=== PATIENT | male | born 2000 ===

== ENCOUNTER 2018-12-09 22:34 | Emergency (ER) | payer MEDICAID ==
[2018-12-10] MEDS ORDERED: Sodium Chloride 0.9% 1,000 ML IV STA ×3 (02:26→03:56)
--- NOTE | 2018-12-10 02:28 | ED PDOC ---
HPI: Abdomen Time Seen by Provider: 12/10/18 01:44 Chief Complaint (Nursing): Abdominal Pain Chief Complaint (Provider): abdominal pain History Per: Patient History/Exam Limitations: no limitations Onset/Duration Of Symptoms: Days (1) Current Symptoms Are (Timing): Still Present Location Of Pain/Discomfort: Diffuse Quality Of Discomfort: Cramping Associated Symptoms: Nausea, Vomiting, Diarrhea Additional Complaint(s): 18 y/o male presents for evaluation of intermittent crampy abdominal pain x 1 day. Associated multiple episodes of watery diarrhea and one episode of vomiting. Denies fever, cough, congestion, chest pain, shortness of breath, palpitations, urinary symptoms, recent travel, sick contacts. Past Medical History Reviewed: Historical Data, Nursing Documentation, Vital Signs Vital Signs: Last Vital Signs Temp 99.8 F H 12/09/18 22:58 Pulse 139 H 12/09/18 22:58 Resp 18 12/09/18 22:58 BP 158/92 H 12/09/18 22:58 Pulse Ox 97 12/09/18 22:58 - Medical History PMH: No Chronic Diseases - Surgical History Surgical History: Appendectomy - Family History Family History: States: No Known Family Hx - Living Arrangements Living Arrangements: With Family - Home Medications Home Medications: Ambulatory Orders Medication Instructions Recorded Dicyclomine [Bentyl] 20 mg PO TID PRN #15 tab 12/10/18 Famotidine [Pepcid] 20 mg PO BID #20 tab 12/10/18 Ondansetron ODT [Zofran ODT] 4 mg PO Q8 PRN #10 odt 12/10/18 - Allergies Allergies/Adverse Reactions: Allergies Allergy/AdvReac Type Severity Reaction Status Date / Time No Known Allergies Allergy Verified 12/09/18 22:58 Review of Systems ROS Statement: Except As Marked, All Systems Reviewed And Found Negative Gastrointestinal: Positive for: Nausea, Vomiting, Abdominal Pain, Diarrhea Physical Exam - Reviewed Nursing Documentation Reviewed: Yes Vital Signs Reviewed: Yes - Physical Exam Appears: Positive for: Well, Non-toxic, No Acute Distress Head Exam: Positive for: ATRAUMATIC, NORMAL INSPECTION, NORMOCEPHALIC Skin: Positive for: Normal Color Eye Exam: Positive for: Normal appearance ENT: Positive for: Normal ENT Inspection Cardiovascular/Chest: Positive for: Regular Rate, Rhythm Respiratory: Positive for: Normal Breath Sounds Gastrointestinal/Abdominal: Positive for: Bowel Sounds, Soft, Tenderness (diffuse) Back: Positive for: Normal Inspection Extremity: Positive for: Normal ROM Neurological/Psych: Positive for: Awake, Alert, Oriented (x3) - Laboratory Results Result Diagrams: 12/10/18 02:40 12/10/18 02:40 - ECG O2 Sat by Pulse Oximetry: 97 - Progress ED Course And Treament: -cbc -cmp -lipase -urinalysis -IV NS bolus -IV zofran -IV pepcid -PO bentyl Disposition - Clinical Impression Clinical Impression: Gastroenteritis - Patient ED Disposition Is Patient to be Admitted: No Counseled Patient/Family Regarding: Studies Performed, Diagnosis, Need For Followup, Rx Given - Disposition Disposition: Routine/Home Disposition Time: 05:54 Condition: IMPROVED Prescriptions: Dicyclomine [Bentyl] 20 mg PO TID PRN #15 tab PRN Reason: Pain, Mild (1-3) Famotidine [Pepcid] 20 mg PO BID #20 tab Ondansetron ODT [Zofran ODT] 4 mg PO Q8 PRN #10 odt PRN Reason: Nausea/Vomiting Instructions: Gastroenteritis (ED)
[2018-12-10 02:51] LABS: BASO % 0.1 % (0.0-2.0); EOS % 0.2 % (0.0-4.0); HEMOGLOBIN 15.7 g/dL (12.0-18.0); LYMPH # 0.3 K/uL (1.0-4.3); LYMPH % 2.6 % (20.0-40.0); MEAN CELL VOLUME 83.5 fl (80.0-94.0); MEAN CORPUSCULAR HEMOGLOBIN 28.3 pg (27.0-31.0); MEAN CORPUSCULAR HGB CONC 33.9 g/dL (33.0-37.0); MEAN PLATELET VOLUME 9.7 fl (7.2-11.7); MONO # 0.8 K/uL (0.0-0.8); MONO % 6.4 % (0.0-10.0); NEUT # 11.7 K/uL (1.8-7.0); NEUT % 90.7 % (50.0-75.0); PLATELET COUNT 313 K/uL (130-400); RBC 5.56 Mil/uL (4.40-5.90); RED CELL DISTRIBUTION WIDTH 13.4 % (11.5-14.5); WHITE BLOOD COUNT 12.9 K/uL (4.8-10.8)
[2018-12-10 02:56] LABS: URINE BILIRUBIN NEGATIVE (NEGATIVE); URINE BLOOD NEGATIVE (NEGATIVE); URINE CLARITY SLIGHTY-CLOUDY (Clear); URINE COLOR YELLOW (YELLOW); URINE GLUCOSE (UA) NEG (NEGATIVE); URINE LEUKOCYTE ESTERASE TRACE Leu/uL (Negative); URINE PROTEIN 100 mg/dL (NEGATIVE); URINE UROBILINOGEN 0.2-1.0 mg/dL (0.2-1.0)
[2018-12-10 03:00] LABS: ALB/GLOB RATIO 1.3 (1.0-2.1); ALBUMIN 4.9 g/dL (3.5-5.0); ALT/SGPT 74 U/L (21-72); AST/SGOT 50 U/L (17-59); BLOOD UREA NITROGEN 15 mg/dl (9-20); CALCIUM 9.2 mg/dL (8.4-10.2); GFR NON-AFRICAN AMERICAN > 60; LIPASE 34 U/L (23-300)
[2018-12-10 04:14] LABS: BANDS 3 % (0-2); LYMPHOCYTE 4 % (20-50); MONOCYTE 7 % (0-10); NEUTROPHIL 86 % (42-75); PLATELET ESTIMATE NORMAL (NORMAL)
[2018-12-10 04:15] LABS: TOTAL CELLS COUNTED 100
[2018-12-10 06:05] VITALS: BP 155/90; PULSE 106; RESP 16; TEMP 99.4; O2SAT 100
== END 2018-12-10 06:06 | disposition home or self-care (01) ==
LOC: H.ER 22:34
DX: K52.9 Noninfective gastroenteritis and colitis, unspecified (principal)
CPT/HCPCS: 80053; 81003; 83690; 85025; 96361; 96374; 96375; 99283; J2405; J7030